=== PATIENT | female | born 1980 | race Caucasian/White ===

== ENCOUNTER 2016-10-17 23:54 | Emergency (ER) | payer OTHER ==
[2016-10-18 01:08] VITALS: BP 116/87; PULSE 86; TEMP 98.1; BMI 28.6
--- NOTE | 2016-10-18 01:11 | PDOC ---
History of Present Illness - History of Present Illness Initial Comments: 10/18/16 01:18 The patient is a 35 year old female, with no significant past medical history, who presents to the emergency department with nasal congestion and cough for 5 days. She reports she can not breathe from her nose due to her congestion. She also reports a productive cough, which is worse at night. She reports using Nyquil and Claritin with little to no relief of symptoms. She denies chest pain, shortness of breath, headache and dizziness. She denies fever, chills, nausea, vomit, diarrhea and constipation. She denies dysuria, frequency, urgency and hematuria. Allergies: NKDA Past surgical history: - General Chief Complaint: Cold Symptoms Stated Complaint: COUGH Time Seen by Provider: 10/18/16 00:43 Review of Systems - Review of Systems Able to Perform ROS?: Yes Comments:: 10/18/16 01:19 CONSTITUTIONAL: Absent: fever, chills, diaphoresis, generalized weakness, malaise, loss of appetite HEENT: (+) nasal congestion, Absent: rhinorrhea, throat pain, throat swelling, difficulty swallowing, mouth swelling, ear pain, eye pain, visual Changes CARDIOVASCULAR: Absent: chest pain, syncope, palpitations, irregular heart rate, lightheadedness , peripheral edema RESPIRATORY: (+) cough, Absent: shortness of breath, dyspnea with exertion, orthopnea, wheezing, stridor, hemoptysis GASTROINTESTINAL: Absent: abdominal pain, abdominal distension, nausea, vomiting, diarrhea, constipation, melena, hematochezia GENITOURINARY: Absent: dysuria, frequency, urgency, hesitancy, hematuria, flank pain, genital pain MUSCULOSKELETAL: Absent: myalgia, arthralgia, joint swelling SKIN: Absent: rash, itching, pallor HEMATOLOGIC/IMMUNOLOGIC: Absent: easy bleeding, easy bruising, lymphadenopathy, frequent infections ENDOCRINE: Absent: unexplained weight gain, unexplained weight loss, heat intolerance, cold intolerance NEUROLOGIC: Absent: headache, focal weakness or paresthesias, dizziness, unsteady gait, seizure, mental status changes, bladder or bowel incontinence PSYCHIATRIC: Absent: anxiety, depression, suicidal or homicidal ideation, hallucinations. *Physical Exam - Vital Signs Last Vital Signs Temp Pulse Resp BP Pulse Ox 98.1 F 86 19 116/87 98 10/18/16 01:02 10/18/16 01:02 10/18/16 01:02 10/18/16 01:02 10/18/16 01:02 - Physical Exam Comments: 10/18/16 01:20 GENERAL: Well developed, well nourished. Awake and alert. No acute distress. HEENT: (+) Nasal congestion. Normocephalic, atraumatic. PERRLA, EOMI. No conjunctival pallor. Sclera are non-icteric. Moist mucous membranes. Oropharynx is clear. NECK: Supple. Full ROM. No JVD. Carotid pulses 2+ and symmetric, without bruits. No thyromegaly. No lymphadenopathy. CARDIOVASCULAR: Regular rate and rhythm. No murmurs, rubs, or gallops. Distal pulses are 2+ and symmetric. PULMONARY: No evidence of respiratory distress. Lungs clear to auscultation bilaterally. No wheezing, rales or rhonchi. ABDOMINAL: Soft. Non-tender. Non-distended. No rebound or guarding. No organomegaly. Normoactive bowel sounds. MUSCULOSKELETAL Normal range of motion at all joints. No bony deformities or tenderness. No CVA tenderness. EXTREMITIES: No cyanosis. No clubbing. No edema. No calf tenderness. SKIN: Warm and dry. Normal capillary refill. No rashes. No jaundice. NEUROLOGICAL: Alert, awake, appropriate. Cranial nerves 2-12 intact. Normoreflexic in the upper and lower extremities. Normal speech. Toes are down-going bilaterally. Gait is normal without ataxia. PSYCHIATRIC: Cooperative. Good eye contact. Appropriate mood and affect. *DC/Admit/Observation/Transfer - Attestations Scribe Attestion: 10/18/16 01:21 Documentation prepared by Micaela Ferraro, acting as biomedical specialist for Christina Schmidt MD Diagnosis at time of Disposition: Nasal congestion, Cough - Discharge Dispostion Disposition: HOME Condition at time of disposition: Stable - Referrals Referrals: STAFF,NOT ON [Primary Care Provider] - - Patient Instructions Printed Discharge Instructions: DI for Viral Upper Respiratory Infection -- Adult Additional Instructions: -try phenylephedrine nasal decongestant tabs for nasal congestion -take tylenol or motrin for fever and body aches -drink plenty of fluids -a nasal spray decongestant may help. Please use it sparingly for only a couple days -if you develop a high fever or worsening breathing difficulties,return to the emergency department
== END 2016-10-18 01:37 | disposition home or self-care (01) ==
LOC: SUPCPDRO 23:54 → JER 23:54
DX: J06.9 Acute upper respiratory infection, unspecified (principal); B97.89 Other viral agents as the cause of diseases classified elsewhere
CPT/HCPCS: 99282-25

== ENCOUNTER 2019-06-24 11:45 | Emergency (ER) | payer OTHER ==
[2019-06-24 12:07] VITALS: BP 100/60; PULSE 122; TEMP 99.3; BMI 31.6
[2019-06-24] MEDS ORDERED: ACETAMINOPHEN 500 MG TABLET (FP) PO ONE (12:39)
[2019-06-24] MEDS ORDERED: ACETAMINOPHEN 325 MG TABLET (FP) ONE (12:47)
--- NOTE | 2019-06-24 14:09 | PDOC ---
History of Present Illness - General Chief Complaint: Cold Symptoms Stated Complaint: WEAKNESS/COUGHING/ BODYACHES Time Seen by Provider: 06/24/19 12:39 History Source: Patient Exam Limitations: No Limitations - History of Present Illness Initial Comments: 06/24/19 13:08 38-year-old female with no past medical history presents ED with worsening symptoms. Patient states was treated yesterday for sinus infection taking Keflex and prednisone with no improvement. Patient states continues with headache, mild sore throat fatigue and body aches. Patient denies vomiting, urinary complaints but does complain of worsening headache with leaning forward Is this a multiple visit Asthma Patient?: No Timing/Duration: reports: this morning Severity: reports: mild Associated Symptoms: reports: fever/chills, headache, sore throat Past History - Travel Traveled outside of the country in the last 30 days: No Close contact w/someone who was outside of country & ill: No - Past Medical History Allergies/Adverse Reactions: Allergies Allergy/AdvReac Type Severity Reaction Status Date / Time No Known Allergies Allergy Verified 06/24/19 12:03 Home Medications: Ambulatory Orders Levothyroxine [Synthroid -] 25 mcg PO DAILY 10/18/16 Amoxicillin/Potassium Clav [Augmentin 875-125 Tablet] 1 each PO BID #14 tablet 06/24/19 Fluticasone Prop 0.05% Nasal [Flonase -] 1 - 2 spray NS BID PRN #1 spray.pump COPD: No Thyroid Disease: Yes - Immunization History Immunization Up to Date: No - Psycho Social/Smoking Cessation Hx Smoking History: Current some day smoker Have you smoked in the past 12 months: No Number of Cigarettes Smoked Daily: 2 Information on smoking cessation initiated: Yes Hx Alcohol Use: No Drug/Substance Use Hx: No Substance Use Type: None Review of Systems - Review of Systems Able to Perform ROS?: Yes Constitutional: Yes: Weakness HEENTM: Yes: Nose Pain, Nose Congestion, Throat Pain Respiratory: No: Cough Cardiac (ROS): Yes: Lightheadedness ABD/GI: No: Symptoms Reported : No: Symptoms Reported Musculoskeletal: No: Symptoms Reported Integumentary: No: Symptoms Reported Neurological: Yes: Headache (forehead and cheek region) *Physical Exam - Vital Signs Last Vital Signs Temp Pulse Resp BP Pulse Ox 99.3 F 122 H 16 100/60 98 06/24/19 11:55 06/24/19 11:55 06/24/19 11:55 06/24/19 11:55 06/24/19 12:03 - Physical Exam General Appearance: Yes: Nourished, Appropriately Dressed. No: Apparent Distress HEENT: positive: EOMI, KATHRIN, TMs Normal, Pharynx Normal, Nasal Congestion, Sinus Tenderness (Maxillary and frontal). negative: Pale Conjunctivae, Pharyngeal Erythema, Tonsillar Exudate, Tonsillar Erythema Neck: positive: Normal Thyroid, Supple Respiratory/Chest: positive: Lungs Clear, Normal Breath Sounds. negative: Respiratory Distress, Accessory Muscle Use Cardiovascular: positive: Regular Rhythm, Tachycardia (113 on port monitor). negative: Edema Gastrointestinal/Abdominal: positive: Soft. negative: Tenderness Musculoskeletal: negative: CVA Tenderness Extremity: positive: Normal Inspection Integumentary: positive: Normal Color, Warm, Moist Neurologic: positive: Motor Strength 5/5 (ambulatory) ED Treatment Course - Medications Given in the ED: ED Medications Discontinued Medications Generic Name Dose Route Start Last Admin Trade Name Freq PRN Reason Stop Dose Admin Acetaminophen 975 mg 06/24/19 12:39 06/24/19 12:45 Tylenol - PO 06/24/19 12:40 975 mg ONCE ONE Administration Medical Decision Making - Medical Decision Making 06/24/19 13:21 Chief complaint: Sinus pressure, dizziness along with a headache despite being on Ceftin and prednisone Since yesterday Exam patient maxillary and frontal tenderness tachycardic and warm to touch plan : Influenza and rapid strep along with Tylenol ordered. Patient states has been off Synthroid for over 6 months after having normal thyroid levels denies weight change, hair change, and change in energy level 06/24/19 14:22 Laboratory Tests 06/24/19 06/24/19 12:48 12:59 Influenza A (Rapid) Negative Influenza B (Rapid) Negative Group A Strep Rapid Negative Patient states feeling better wants to be discharged home. Patient will continue to use her prednisone and nasal spray. I will switch patient to Augmentin Discharge - Discharge Information Problems reviewed: Yes Clinical Impression/Diagnosis: Sinus pressure Condition: Improved Disposition: HOME - Additional Discharge Information Prescriptions: Amoxicillin/Potassium Clav [Augmentin 875-125 Tablet] 1 each PO BID #14 tablet - Follow up/Referral Referrals: Ed Campbell MD [Primary Care Provider] - - Patient Discharge Instructions Patient Printed Discharge Instructions: DI for Sinusitis Additional Instructions: Please take Augmentin as prescribed. Drink plenty of fluids take Tylenol Motrin for discomfort . continue to use nasal spray and complete your steroids as prescribed - Post Discharge Activity
== END 2019-06-24 15:42 | disposition home or self-care (01) ==
LOC: JER 11:45
DX: J34.89 Other specified disorders of nose and nasal sinuses (principal); E03.9 Hypothyroidism, unspecified; Z72.0 Tobacco use
CPT/HCPCS: 87070; 87804; 87880; 99282-25

== ENCOUNTER 2022-03-24 19:12 | Emergency (ER) | payer OTHER ==
[2022-03-24 19:33] VITALS: BP 109/68; PULSE 84; RESP 18; TEMP 98.4; BMI 29.2
[2022-03-24] MEDS ORDERED: ACETAMINOPHEN 500 MG TABLET (FP) PO ONE (21:24)
[2022-03-24] MEDS ORDERED: ACETAMINOPHEN 500 MG TABLET (FP) ONE (21:25)
== END 2022-03-24 23:21 | disposition left against medical advice (07) ==
LOC: JER 19:12
DX: R07.89 Other chest pain (principal); V49.40XA Driver injured in collision with unspecified motor vehicles in traffic accident, initial encounter
CPT/HCPCS: 71046-TC-FY; 99283-25